=== PATIENT | female | born 1960 | race Caucasian/White ===

== ENCOUNTER 2019-02-15 17:29 | Inpatient (IN) | payer MEDICARE, OTHER ==
[~2019-02-15] VITALS: Ht 162.6 cm; Wt 95.9 kg
[2019-02-15] MEDS ORDERED: OXCA300T14 PO (18:19)
[2019-02-15] MEDS ORDERED: MORPHINE 4 MG/ML 1ML VIAL/SYRINGE (J2270) IV ONE (18:45)
[2019-02-15] MEDS ORDERED: TRIL150T PO (18:51)
[2019-02-15] MEDS ORDERED: TRIL1TAB PO (18:51)
[2019-02-15] MEDS ORDERED: HYDR25TAB PO (18:51)
[2019-02-15] MEDS ORDERED: AMLO10TA5 PO (18:51)
[2019-02-15] MEDS ORDERED: METO25TA4 PO (18:51)
[2019-02-15 18:55] LABS: BASO # 0.1 10^3/uL (0.0-0.2); BASO % 0.4 % (0.0-1.0); EOS # 0.1 10^3/uL (0.0-0.50); EOS % 0.9 % (0.0-3.0); HEMATOCRIT 38.5 % (36.0-47.0); HEMOGLOBIN 13.1 g/dl (12.0-15.5); LYMPH # 1.7 10^3/uL (1.5-4.5); LYMPH % 12.1 % (24.0-44.0); MEAN CORPUSCULAR VOLUME 85.4 fl (80.0-96.0); MONO # 1.1 10^3/uL (0.0-0.8); MONO % 8.2 % (0.0-5.0); NEUTROPHILS # 10.7 10^3/uL (1.8-7.7); PLATELET COUNT, AUTOMATED 303 10^3/uL (150-450); RED BLOOD COUNT 4.51 10^6/uL (4.00-5.40); WHITE BLOOD COUNT 13.7 10^3/uL (4.0-10.0)
[2019-02-15] MEDS ORDERED: OXcarbazepine 150 MG TAB PO ONE (19:15)
[2019-02-15] MEDS ORDERED: NS 1,000 ML IV ONE (19:15)
[2019-02-15 19:24] LABS: BLOOD UREA NITROGEN 16 MG/DL (7-18); CALCIUM LEVEL 9.3 MG/DL (8.5-10.1); CARBON DIOXIDE LEVEL 26 MEQ/L (21-32); CHLORIDE LEVEL 98 MEQ/L (98-107); CREATININE FOR GFR 0.73 MG/DL (0.55-1.30); GLOMERULAR FILTRATION RATE > 60.0 (>51); GLUCOSE, FASTING 132 MG/DL (70-100); POTASSIUM SERUM 3.6 MEQ/L (3.5-5.1); SODIUM LEVEL 133 MEQ/L (136-145)
[2019-02-15] MEDS ORDERED: HYDROMORPHONE HCL 0.5 MG/ 0.5 ML SYRINGE (J1170 PER 1) IV ONE (19:30)
[2019-02-15] MEDS ORDERED: PIPERACILLIN/TAZOBACTAM SOD 3.375 GM in D5W MINI-BAG PLUS 50 ML IV ONE (19:45)
[2019-02-15] MEDS ORDERED: ADACEL/BOOSTRIX VACCINE (DIPHTH/PERTUSS/ACELL/TETANUS)0.5ML SYR (90715) IM ONE ×2 (19:45→21:15)
--- NOTE | 2019-02-15 20:29 | REP ---
RIGHT ELBOW COMPLETE: 02/15/2019. Clinical history: Dog bite. Findings: Three views are provided. The patient unable to do the external oblique. Large soft tissue injury and lucencies about the inferior upper arm and elbow. I do not see a bone puncture wound or fracture. Joint effusion cannot be excluded. Impression: 1. A large soft tissue injury and defect without visible bony abnormality. Electronically Signed by Maverick Ghosh MD 02/16/2019 09:32 P
--- NOTE | 2019-02-15 21:02 | HPEPDOC ---
[facility] Medical History & Physical Date of Admission Feb 15, 2019 Date of Service: Feb 16, 2019 Attending Physician: SHIMA LOZADA MD History and Physical Time of service 2:30 AM CHIEF COMPLAINT: Bitten by dogs HISTORY OF PRESENT ILLNESS: This is an unfortunate 58 year old female who was mauled by 2 great minor while visiting a friend yesterday. The dogs did not know her and bit her, face her arms and her right elbow. The friend who has accompanied her to the hospital reports that this event was reported to the police. Per discussion with the ED provider, Dr. Vanegas may debride the elbow in the morning. The only complaint the patient has right now is of a headache and arm pain. REVIEW OF SYSTEMS: 12 point review of systems negative except as listed in HPI PAST MEDICAL / SURGICAL HISTORY: 1 Brain Aneurysm. 2. Seizures 3. Chronic hypertension SOCIAL HISTORY: Does not smoke FAMILY HISTORY: Cancer Hypertension ALLERGIES: Please see below. HOME MEDICATIONS: Please see below. PHYSICAL EXAMINATION: VITAL SIGNS: See below GENERAL APPEARANCE: Obese, well-developed, not in apparent distress HEENT: Has bite bhatt on the face and pain and dry dressings as above, the left eyebrow CARDIOVASCULAR: Regular rate and rhythm. No murmurs, rubs or gallops LUNGS: Clear to auscultation bilaterally ABDOMEN: Positive bowel sounds, soft and nontender. Palpation MUSCULOSKELETAL: Age of motion intact in all extremities except for the right elbow which is wrapped in dressings with some bloody discharge NEUROLOGICAL: Cranial nerves II-12 grossly intact PSYCHIATRIC: Alert and oriented to person, place and time, able to understand and follow commands, appears depressed LABORATORY DATA: See below. IMAGING: X-ray of Right elbow. "Impression A large soft tissue injury and defect without visible bony abnormality." X-rays of radius, ulnar and humerus have been completed, but the reports are p ending MICROBIOLOGY: Please see below. ASSESSMENT: Ms. Tracey is a 58-year-old female the past medical history of hypertension, brain aneurysm, and seizures, who will be admitted for management of wounds caused by dog bites . PLAN: 1. Wounds 2/2 Dog Bite The Right elbow was is affected Preoperative Assessment Risk Stratification / ASA Class 2 Plan: admit to Med Surg / NPO w IVF / Zosyn / Gen Surg Consult (Dr. Vanegas ) / Tetanus shot / Morphine for Pain control 2.Leucocytosis likely 2/2 infected wounds Plan: as above & f/u blood cx 3.Hyperglycemia Plan: f/u A1C 4.Chronic hypertension / Brain Anurysm / seizure disorder. Plan: Continue home meds DVT prophylaxis with SCDs Disposition pending clinical course Vital Signs Vital Signs Date Time Temp Pulse Resp B/P (MAP) Pulse Ox O2 Delivery O2 Flow Rate FiO2 02/15/19 20:20 18 99 02/15/19 19:12 69 136/75 (95) Room Air Laboratory Data Labs 24H Laboratory Tests 2 02/15/19 18:45: Immature Granulocyte % (Auto) 0.4, White Blood Count 13.7H, Red Blood Count 4.51, Hemoglobin 13.1, Hematocrit 38.5, Mean Corpuscular Volume 85.4, Mean Corpuscular Hemoglobin 29.0, Mean Corpuscular Hemoglobin Concent 34.0, Red Cell Distribution Width 12.2, Platelet Count 303, Neutrophils (%) (Auto) 78.0H, Lymphocytes (%) (Auto) 12.1L, Monocytes (%) (Auto) 8.2H, Eosinophils (%) (Auto) 0.9, Basophils (%) (Auto) 0.4, Neutrophils # (Auto) 10.7H, Lymphocytes # (Auto) 1.7, Monocytes # (Auto) 1.1H, Eosinophils # (Auto) 0.1, Basophils # (Auto) 0.1, Nucleated Red Blood Cells % (auto) 0.0, Anion Gap 9, Glomerular Filtration Rate > 60.0, Blood Urea Nitrogen 16, Creatinine 0.73, Sodium Level 133L, Potassium Level 3.6, Chloride Level 98, Carbon Dioxide Level 26, Calcium Level 9.3 CBC/BMP Laboratory Tests 02/15/19 18:45 Red Blood Count 4.51, Mean Corpuscular Volume 85.4, Mean Corpuscular Hemoglobin 29.0, Mean Corpuscular Hemoglobin Concent 34.0, Red Cell Distribution Width 12.2, Neutrophils (%) (Auto) 78.0 H, Lymphocytes (%) (Auto) 12.1 L, Monocytes (%) (Auto) 8.2 H, Eosinophils (%) (Auto) 0.9, Basophils (%) (Auto) 0.4, Neutrophils # (Auto) 10.7 H, Lymphocytes # (Auto) 1.7, Monocytes # (Auto) 1.1 H, Eosinophils # (Auto) 0.1, Basophils # (Auto) 0.1, Calcium Level 9.3 Home Medications Scheduled Amlodipine Besylate (Amlodipine Besylate) 10 Mg Tablet, 10 MG PO DAILY Amoxicillin/Potassium Clav (Augmentin 875-125 Tablet) 1 Each Tablet, 1 TAB PO BID Aspirin (Aspir 81) 81 Mg Tablet.dr, 81 MG PO DAILY Hydrochlorothiazide (Hydrochlorothiazide) 25 Mg Tablet, 25 MG PO DAILY Metoprolol Tartrate (Metoprolol Tartrate) 25 Mg Tablet, 25 MG PO BID Multivitamin (Multivitamins) 1 Each Capsule, 1 CAP PO DAILY Oxcarbazepine (Trileptal) 150 Mg Tablet, 150 MG PO BID Oxcarbazepine (Trileptal) 300 Mg Tablet, 300 MG PO BID Scheduled PRN Oxycodone HCl/Acetaminophen (Percocet 5-325 mg Tablet) 1 Each Tablet, 1 TAB PO Q4H PRN for PAIN Allergies Coded Allergies: zomepirac (Verified Allergy, Unknown, 02/15/19) A-FIB/CHADSVASC A-FIB History Current/History of A-Fib/PAF?: No Current PO Anticoag Therapy: No SHIMA LOZADA MD Feb 15, 2019 21:02
[2019-02-15] MEDS: NS 1,000 ML IV SCH (21:36)
[2019-02-15] MEDS ORDERED: ASPI81TA85 PO (21:59)
[2019-02-15] MEDS ORDERED: MULTCAP PO (21:59)
[2019-02-15] MEDS ORDERED: LIDOCAINE 2% MDV 20 ML VIAL SC ONE (22:00)
[2019-02-15] MEDS: MORPHINE 4 MG/ML 1ML VIAL/SYRINGE (J2270) IV PRN (22:49)
[2019-02-16] VITALS (12 sets, daily range): BP systolic 95–179; BP diastolic 50–88
[2019-02-16] MEDS: MORPHINE 4 MG/ML 1ML VIAL/SYRINGE (J2270) IV PRN ×3 (00:37→13:45)
[2019-02-16] MEDS ORDERED: ONDANSETRON 4MG/2ML VIAL (J2405) IV ONE (01:45)
[2019-02-16] MEDS ORDERED: ONDANSETRON 4MG/2ML VIAL (J2405) IV PRN ×2 (05:30→10:45)
[2019-02-16] MEDS ORDERED: PIPERACILLIN/TAZOBACTAM SOD 3.375 GM in D5W MINI-BAG PLUS 50 ML IV SCH ×2 (06:00→21:00)
[2019-02-16 06:44] LABS: HEMATOCRIT 35.3 % (36.0-47.0); HEMOGLOBIN 12.2 g/dl (12.0-15.5); MEAN CORPUSCULAR HEMOGLOBIN 29.8 pg (27.0-33.0); MEAN CORPUSCULAR HGB CONC 34.6 g/dl (32.0-36.5); MEAN CORPUSCULAR VOLUME 86.1 fl (80.0-96.0); PLATELET COUNT, AUTOMATED 280 10^3/uL (150-450); WHITE BLOOD COUNT 10.8 10^3/uL (4.0-10.0)
[2019-02-16 06:54] LABS: INR 1.05; PROTHROMBIN TIME 13.4 SECONDS (11.8-14.0)
[2019-02-16 06:55] LABS: PARTIAL THROMBOPLASTIN TIME 33.2 SECONDS (25.0-38.4)
[2019-02-16 07:02] LABS: BLOOD UREA NITROGEN 9 MG/DL (7-18); CALCIUM LEVEL 8.7 MG/DL (8.5-10.1); CARBON DIOXIDE LEVEL 28 MEQ/L (21-32); CHLORIDE LEVEL 101 MEQ/L (98-107); CREATININE FOR GFR 0.64 MG/DL (0.55-1.30); GLOMERULAR FILTRATION RATE > 60.0 (>51); GLUCOSE, FASTING 121 MG/DL (70-100); MAGNESIUM LEVEL 1.9 MG/DL (1.8-2.4); POTASSIUM SERUM 3.6 MEQ/L (3.5-5.1); SODIUM LEVEL 137 MEQ/L (136-145)
[2019-02-16 07:05] LABS: HEMOGLOBIN A1c 5.7 %
[2019-02-16] MEDS ORDERED: PROPOFOL 200 MG/20 ML VIAL As Ordered ONE (07:42)
[2019-02-16] MEDS ORDERED: ONDANSETRON 4MG/2ML VIAL (J2405) As Ordered ONE (07:42)
[2019-02-16] MEDS ORDERED: LIDOCAINE 2% INJ 100 MG/5 ML SDV (FOR ANES.) As Ordered ONE (07:42)
[2019-02-16] MEDS ORDERED: MIDAZOLAM INJ 2 MG/2 ML VIAL (J2250) As Ordered ONE (07:42)
[2019-02-16] MEDS ORDERED: fentaNYL 100 MCG/2 ML INJECTION (J3010) As Ordered ONE ×2 (07:42→08:45)
[2019-02-16] MEDS ORDERED: DESFLURANE 240 ML INHALANT As Ordered ONE (07:47)
[2019-02-16] MEDS: NS 1,000 ML IV SCH ×2 (07:55→12:06)
[2019-02-16] MEDS ORDERED: ceFAZolin 2 GM/D5W 50 ML IV BAG (J0690 PER 500MG) As Ordered ONE (08:03)
--- NOTE | 2019-02-16 08:05 | CR ---
DATE OF CONSULTATION: 02/15/2019 CHIEF COMPLAINT: Right elbow pain. HISTORY OF PRESENT ILLNESS: This is a pleasant 58-year-old female who was on a walk with a friend when she was attacked by two large great abhishek dogs. She stated that she suffered multiple bites, most significantly to her right elbow but also her face and left forearm, along with a scratch on her right leg. She said the pain was immediate, sharp and severe. It was made worse by ant sort of movement and improved but any sort of rest of immobilization and significant levels of narcotics once she reached the ER. The patient denies any numbness and tingling to her extremities. She states that her tetanus was updated in the ER. This all occurred at 5 p.m. today. The pain is throbbing and sharp in character. She denies any recent fever, chills, numbness or vomiting. A complete 10 system review of systems was conducted with pertinent, positives and negatives in the HPI, all other systems are negative. PAST MEDICAL HISTORY: High blood pressure and previous stroke and aneurysm.History of seizures. PAST SURGICAL HISTORY: Surgery for the aneurysm. ALLERGIES: No known drug allergies. MEDICATIONS: Patient takes 10 mg of amlodipine. She also takes 25 mg of hydrochlorothiazide 25 mg twice a day and metoprolol, 300 mg of oxcarbazepine along with an additional 150 mg tablet of that for a total of 450 mg twice a day. SOCIAL HISTORY: She actually lives in [place] and lives with her daughter. She is a former smoker and does not drink. PHYSICAL EXAMINATION: Patient is awake, alert and oriented, breathing comfortably unlabored on room air. Patient has appropriate affect. Bilateral lower extremity exam: Skin is intact except for small superficial scratch on her right thigh. Otherwise her sensation is intact to light touch in superficial peroneal, deep peroneal, saphenous and tibial distributions. She has positive EHL, FHL, tib, gastroc and quad hamstring motor function. She has no tenderness to palpation. Her posterior tibial pulses were 2+ with regular rate. She has full range of motion of her toes, ankles and knees without any pain and a negative log roll bilateral hips. Left upper extremity: Multiple superficial lacerations over her forearm and hand, however sensation is intact to light touch in superficial, radial nerve, median nerve and ulnar nerve. Radial pulses are 2+ with regular rate. Positive EPL, FPL, EDC and FDF, FDP to all fingers, Positive AIN, PIN, and ulnar motor nerve function. She has minimal pain with range of motion for the wrist, elbow and shoulders. This is attributed to her lacerations. She is only tender to palpation over the multiple lacerations that cover the dorsum of her hand into her palm and over her dorsal forearm and arm. Right upper extremity: She has no tenderness to palpation around the shoulder, over the anterior arms. She has some superficial scratches. Over the elbow she has significant laceration measuring 2 on the anterior aspect of her elbow anterolateral aspect of her elbow that is about 10 cm long each along with one directly posterior, an additional 10 cm. There is exposed subcutaneous tissue and muscle belly. She was able to actively flex and extend her elbow with 3/5 strength, likely limited to pain. Wounds are generally uncontaminated to gross visualization. She also some superficial abrasions over her hands and wrists on the right side. Her radial pulse is 2+ with a regular rate. Her sensation is intact to light touch, superficial sensory branches of the radial nerve, median nerve, and ulnar nerve. Positive AIN, PIN and ulnar motor nerve function. FPL, EPL, FDS, FDP to all fingers are intact. There are superficial lacerations across her head most significantly one about 10 cm in the left side of her face. No gross contamination. IMAGING: So far right elbow, has been completed that demonstrates no acute fracture or dislocation, however is concerning for traumatic arthrotomy with air within the joint space. DIAGNOSIS: 1. Right traumatic arthrotomy with extensive soft-tissue lacerations and muscle belly damage of the right elbow. This diagnosis was discussed at length with the patient and their family, including their daughter over the phone who is located in [place]. I stated that with the traumatic arthrotomy and extensive soft-tissue damage, I do believe irrigation and debridement in the OR with complex wound closure is indicated. We will also further evaluate for any sort of tendon laceration and damage, however I do not believe this will be encountered but we will definitely take a better look when she is sedated. The patient has had her tetanus updated in the ER and has had a first antibiotic dose of Zosyn. I asked that this could be continued until surgery and likely we will continue 24-48 hours after surgery. This will help decrease her risk of septic arthritis or soft-tissue infection. We obtained consent in the ER. All risks and benefits were discussed including but not limited to infection, damage to surrounding structures, and blood loss. A consent for blood transfusion was also obtained in the ER. The wounds are going to be dressed by the ER staff and we plan for debridement tomorrow. Please make her nothing by mouth at midnight and start her on IV fluids and continue IV antibiotics. She will be admitted to the hospitalist service for preoperative optimization and clearance including her risk of past seizures and risk of stroke history. ADDENDUM: R humers and Left forearm films completed demonstrated no acute fracture or dislocations MTDD
[2019-02-16] MEDS ORDERED: KETAMINE HCL 200 MG/20 ML VIAL As Ordered ONE (08:32)
[2019-02-16] MEDS ORDERED: KETOROLAC 60 MG/2 ML VIAL (J1885) As Ordered ONE (09:14)
[2019-02-16 09:32] LABS: NT-PRO BNP 42 PG/ML (<125)
--- NOTE | 2019-02-16 10:30 | REP ---
RIGHT HUMERUS: 02/15/2019. Comparison: Right elbow earlier this date. Clinical history: Significant soft tissue injury of the distal upper arm and elbow region from reported dog bite. Findings: The two-views show prominent soft tissue defect lower aspect of the upper arm. I do not see definite bone puncture or fracture/avulsion. The subcutaneous air from massive soft tissue injury in this region could certainly obscure a bone puncture. Remainder the shaft and humeral head were intact. The distal humerus without focal lesion. Impression: 1. Significant soft tissue injury adjacent to the distal humerus in the lower aspect of the upper arm. No other finding. Electronically Signed by Maverick Ghosh MD 02/16/2019 09:45 P
--- NOTE | 2019-02-16 10:35 | REP ---
LEFT FOREARM: 02/15/2019. Clinical history: Dog bite. Findings: Two views of the forearm show IV along the ventral aspect of the forearm midshaft no fracture or focal lesion evident. No radiopaque foreign body. Some mild soft tissue swelling distal forearm. Impression: 1. Some soft tissue swelling distal forearm without visible fracture, avulsion, bony abnormality or abnormal soft-tissue calcification. No foreign body. Electronically Signed by Maverick Ghosh MD 02/16/2019 09:46 P
--- NOTE | 2019-02-16 10:35 | REP ---
RIGHT FOREARM: 02/15/2019. Clinical history: Dog bite. Comparison: Right elbow and humerus this date. Findings: Subcutaneous edema soft tissue injury about the elbow and proximal aspect of the forearm adjacent to the olecranon and antecubital fossa remainder of the soft tissues about the forearm unremarkable radius and ulna show no focal lesion. Visualized wrist intact. Impression: 1. Soft tissue injury at the elbow antecubital fossa involving the proximal most aspect of the forearm but no bony abnormality or foreign body. Electronically Signed by Maverick Ghosh MD 02/16/2019 09:47 P
[2019-02-16] MEDS ORDERED: LR 1,000 ML IV SCH (10:45)
[2019-02-16] MEDS ORDERED: HYDROMORPHONE HCL 0.5 MG/ 0.5 ML SYRINGE (J1170 PER 1) IV PRN (10:45)
[2019-02-16] MEDS ORDERED: fentaNYL 100 MCG/2 ML INJECTION (J3010) IV PRN (10:45)
[2019-02-16] MEDS ORDERED: PERCOCET 5MG/325MG TAB PO PRN (10:45)
[2019-02-16] MEDS ORDERED: PERCOCET 5MG/325MG TAB As Ordered ONE (10:46)
[2019-02-16] MEDS: OXcarbazepine 150 MG TAB PO SCH ×2 (12:06→21:00)
[2019-02-16] MEDS: OXcarbazepine 300 MG TAB PO SCH ×2 (12:06→21:00)
[2019-02-16] MEDS: ASPIRIN 81 MG ENTERIC TAB PO SCH (12:06)
[2019-02-16] MEDS: hydroCHLOROthiazide 25 MG TAB PO SCH (12:06)
[2019-02-16] MEDS: amLODIPine 10 MG TAB PO SCH (12:07)
[2019-02-16] MEDS: METOPROLOL TART 25 MG TABLET PO SCH ×2 (12:07→21:02)
--- NOTE | 2019-02-16 12:51 | RO ---
DATE OF PROCEDURE: 02/16/2019 PREOPERATIVE DIAGNOSIS: Right elbow traumatic arthrotomy with complex lacerations throughout anterior, lateral and posterior and medial right elbow. POSTOPERATIVE DIAGNOSIS: Right elbow traumatic arthrotomy with complex lacerations throughout anterior, lateral and posterior and medial right elbow. PROCEDURE: SURGEON: Dr. Devyn Vanegas ANESTHESIOLOGY CRNA: ANESTHESIA: General. TOURNIQUET TIME: 71 minutes. ESTIMATED BLOOD LOSS: 25 mL. INDICATIONS: This is a pleasant, 58-year-old female who was mauled by two [place] yesterday evening. She was seen in the ER where her tetanus was updated and her antibiotics were started and she had initial irrigation of all her open wounds. We discussed that since on x-ray and physical exam it appeared that there was a penetration to the joint and there was also complex skin and muscle damage that it warranted open debridement and closure. The patient expressed understanding and agreed with this plan. They understand the risks and benefits associated with this, including but not limited to infection, blood loss and damage to surrounding structures. OPERATIVE DESCRIPTION: The patient was brought back to the operating room (OR), placed supine on the operative bed and underwent general anesthesia, at which point, the operative arm was scrubbed with Betadine scrub brush to cleanse the superficial contaminant. This was then cleansed with alcohol and then we did a Betadine prep. The prep was completed and draped in the usual fashion, at which point, a time out was had. She also received 2 grams of Ancef prior to the procedure starting. The site, side, procedure and patient were confirmed, at which point, we used the gravity exsanguination and elevated the tourniquet and started debriding the numerous lacerations. All skin, subcutaneous and muscle had to be debrided from all the lacerations which numbered 9 total lacerations with a total length of 36 cm. All 36 cm underwent sharp debridement of skin, subcutaneous tissue and underlying muscle. We were able to identify the penetration to the joints in both the lateral traumatic lacerations along with posterior. The triceps tendon was found to be, albeit beat up but intact, with over 95% intact, so just debrided some of the tendon as well, at which point, we ran 9 liters of irrigation using Cysto tubing throughout all the lacerations. Once we were happy with the cleanliness of the wounds, we started our closures. We used #3-0 PDS and #3-0 nylon for closures. In total 36 cm of complex lacerations had to be closed in a complex fashion utilizing skin transfers/rearragements and moving full thickness flaps. Once we were happy with the closure, we cleansed the patient's arm and dressed the wounds with Adaptic. Prior to the final closure, we also inserted a 10 Iranian drain into the lateral aspect of beds, also connected with the anterior wound as this was a large space. The wounds were dressed with Adaptic, gauze, ABDs, Kerlix, web roll, and placement of posterior slab splint for skin rest, at which point, the patient was awakened from surgery, tourniquet was let down and transferred to the postanesthesia care unit (PACU) in stable condition. Postoperative Plan: The patient will remain admitted for at least 48 hours for IV antibiotics with Zosyn and then discharged on seven days of Augmentin. I will see her in the office at 2 weeks, at which point, we will evaluate the skin for suture removal. This may require a more extended wait. Once we decide the skin is ready for suture removal is when we will discontinue the splint and allow her to start ranging her elbow to avoid any sort of stiffness. The drain will be removed prior to discharge or as soon as the output is minimal. There were no complications. The only drain is the 10 Iranian drain. No specimens. MTDD
--- NOTE | 2019-02-16 13:07 | IPN ---
DATE: 02/16/2019 The patient was initially seen this morning prior to surgery. She was admitted last night for multiple dog bites across her bilateral upper extremities and her face along with a scratch on her right leg. Patient states that her pain is much improved. She denies any fevers or issues overnight. We planned for surgery on her right elbow today that sustained a traumatic arthrotomy. PHYSICAL EXAMINATION: The patient was awake, alert and oriented breathing comfortably unlabored on room air. Appropriate affect. Right upper extremity dressing is in place covering the incisions however. Radial pulse 2+ and regular rate. Positive AIN, PIN, and ulnar motor nerve function. Good reflex in the elbow. Sensation intact to light touch. Left upper extremity, multiple lacerations, they are small and not deep including over her left hand however intact FPL, EPL, EDC, and FDS, FDP of all fingers. Sensation intact to all fingers. Imaging of the right humerus and left elbow were reviewed demonstrating no acute fracture or dislocation. The previous right elbow film that demonstrate air within the joints of the elbow. DIAGNOSIS: 1. Right elbow traumatic arthrotomy. 2. Right elbow multiple complex lacerations to the right elbow. 3. Left hand complex lacerations. This was discussed at length with the patient. We discussed surgery and the need for irrigation and debridement and complex closure of the lacerations along with evaluating for any sort of tendon damage. Patient expressed understanding and agreement with the plan. She is currently nothing by mouth and on IV fluids and has been receiving Zosyn. We should continue the Zosyn until the patient is discharged at which point I would like her discharged on 7 days of Augmentin. I would also recommend to the hospitalist that she have a ENT/general surgery consultation for the laceration on her face. With regards to her left hand I would like the dressing removed with the left day or two because I want her to work on range of motion and as long as it is not bleeding copiously she does not require any sort of dressings over these wounds. Please feel free to call with any questions or concerns. JEREMIAS
--- NOTE | 2019-02-16 13:11 | IPNPDOC ---
Subjective Date Seen The patient was seen on 02/16/19. Subjective Chief Complaint/HPI Going to the OR today, complains of right elbow discomfort. Denies any chest pain or sob, denies any abdominal pain , nausea or vomiting or diarrhea Objective Physical Examination General Exam: Positive: Alert, Cooperative, No Acute Distress Eye Exam: Positive: PERRLA, Conjunctiva & lids normal, EOMI; Negative: Sclera icteric ENT Exam: Positive: Atraumatic, Mucous membr. moist/pink, Pharynx Normal Neck Exam: Positive: Supple; Negative: JVD, thyromegaly Chest Exam: Positive: Clear to auscultation, Normal air movement Heart Exam: Positive: Rate Normal, Regular Rhythm, Normal S1, Normal S2; Negative: Murmurs, Rubs Abdomen Exam: Positive: Normal bowel sounds, Soft; Negative: Tenderness, Hepatospenomegaly Extremity Exam: Positive: Normal pulses; Negative: Clubbing, Cyanosis, Edema Skin Exam: Positive: Lesion (Right elbow large defect with exposure of muscle belly), Other skin issue (superficial scraches on the left upper extremity, 1 superficail scratch on jeannine rigt thigh , scratches on face and forehead) Assessment /Plan Assessment This is a 58 year old female with PMH of seizures, brain aneurysm repaired, hypertensin, who was mauled by 2 dogs while visiting a friend yesterday. The dogs did not know her and bit her, face her arms and her right elbow. The major trauma is around the right elbow. IMAGING: right elbow, humerus, radius and ulna on the right demonstrates no acute fracture or dislocation, however is concerning for traumatic arthrotomy with air within the joint space. She was admitted for Right traumatic arthrotomy with extensive soft-tissue lac erations and muscle belly damage of the right elbow needed debridement so admitted to the hospital for evaluation by orthopedics and operative intervention. Wounds 2/2 Dog Bite The Right elbow was is affected with suspected traumatic arthrotomy due to the presence of air in joint space. Planned for irrigation and debridement in the OR with complex wound closure and further evaluation for any sort of tendon laceration and damage under sedation. No bone injury. Went to OR 02/16/19 for debridement patient medically optimized for the procedure. Leucocytosis likely reactive wounds did not seem infected. It was very fresh happened yesterday only. better today, cultures in progress. however in view of surgical intervention and wounds at other places with cover with Zosyn till woundscultures come back Hyperglycemia A1c 5.7 , no DM Chronic hypertension / Brain Aneurysm / seizure disorder. On Amlodipine, HCTZ and metoprolol Plan/VTE VTE Prophylaxis Ordered?: Yes VS, I&O, 24H, Fishbone Vital Signs/I&O Vital Signs Date Time Temp Pulse Resp B/P (MAP) Pulse Ox O2 Delivery O2 Flow Rate FiO2 02/16/19 12:15 98.7 79 16 159/79 (105) 95 02/16/19 01:19 Room Air I&O- Last 24 Hours up to 6 AM 02/16/19 06:00 Intake Total 700 ml Output Total 800 ml Balance -100 ml Laboratory Data 24H LABS Laboratory Tests 2 02/15/19 18:45: Immature Granulocyte % (Auto) 0.4, White Blood Count 13.7H, Red Blood Count 4.51, Hemoglobin 13.1, Hematocrit 38.5, Mean Corpuscular Volume 85.4, Mean Corpuscular Hemoglobin 29.0, Mean Corpuscular Hemoglobin Concent 34.0, Red Cell Distribution Width 12.2, Platelet Count 303, Neutrophils (%) (Auto) 78.0H, Lymphocytes (%) (Auto) 12.1L, Monocytes (%) (Auto) 8.2H, Eosinophils (%) (Auto) 0.9, Basophils (%) (Auto) 0.4, Neutrophils # (Auto) 10.7H, Lymphocytes # (Auto) 1.7, Monocytes # (Auto) 1.1H, Eosinophils # (Auto) 0.1, Basophils # (Auto) 0.1, Nucleated Red Blood Cells % (auto) 0.0, Anion Gap 9, Glomerular Filtration Rate > 60.0, Blood Urea Nitrogen 16, Creatinine 0.73, Sodium Level 133L, Potassium Level 3.6, Chloride Level 98, Carbon Dioxide Level 26, Calcium Level 9.3 02/16/19 06:29: Nucleated Red Blood Cells % (auto) 0.0, Anion Gap 8, Glomerular Filtration Rate > 60.0, Blood Urea Nitrogen 9, Creatinine 0.64, Sodium Level 137, Potassium Level 3.6, Chloride Level 101, Carbon Dioxide Level 28, Calcium Level 8.7, Prothrombin Time 13.4, Prothromb Time International Ratio 1.05, Activated Partial Thromboplast Time 33.2, Estimated Mean Plasma Glucose 117H, Hemoglobin A1c 5.7, Magnesium Level 1.9, HP-Pbb-O-Type Natriuretic Peptide 42 CBC/BMP Laboratory Tests 02/15/19 18:45 Red Blood Count 4.51, Mean Corpuscular Volume 85.4, Mean Corpuscular Hemoglobin 29.0, Mean Corpuscular Hemoglobin Concent 34.0, Red Cell Distribution Width 12.2, Neutrophils (%) (Auto) 78.0 H, Lymphocytes (%) (Auto) 12.1 L, Monocytes (%) (Auto) 8.2 H, Eosinophils (%) (Auto) 0.9, Basophils (%) (Auto) 0.4, Neutrophils # (Auto) 10.7 H, Lymphocytes # (Auto) 1.7, Monocytes # (Auto) 1.1 H, Eosinophils # (Auto) 0.1, Basophils # (Auto) 0.1, Calcium Level 9.3 02/16/19 06:29 Red Blood Count 4.10, Mean Corpuscular Volume 86.1, Mean Corpuscular Hemoglobin 29.8, Mean Corpuscular Hemoglobin Concent 34.6, Red Cell Distribution Width 12.4, Calcium Level 8.7 Microbiology Microbiology 02/16/19 Blood Culture, Received Pending SIS COREA MD Feb 16, 2019 13:11
[2019-02-16] MEDS ORDERED: IBUPROFEN 600 MG TAB PO PRN (14:15)
[2019-02-16] MEDS ORDERED: ONDANSETRON 4 MG TAB (S0181) PO PRN (14:15)
[2019-02-16] MEDS: PIPERACILLIN/TAZOBACTAM SOD 3.375 GM in D5W MINI-BAG PLUS 50 ML IV SCH ×2 (15:19→21:00)
--- NOTE | 2019-02-16 16:17 | ECGEPIP ---
[facility] Test Date: 2019-02-16 Pat Name: ANGEL AGEE Department: Room: [place] [address] Gender: Female Client Professional: ROSANA : [id number] Requested By: SHIMA LOZADA Order Number: [id number] Reading MD: Zeferino Mckeon Measurements Intervals [place] Rate: 86 P: 34 FL: 167 QRS: 7 QRSD: 106 T: 30 QT: 374 QTc: 448 Interpretive Statements SINUS RHYTHM NO PRIOR TRACING IN THE SYSTEM Electronically Signed on 02-16-2019 16:17:12 EDT by Zeferino Mckeon
[2019-02-16] MEDS: PERCOCET 5MG/325MG TAB PO PRN ×2 (16:20→21:02)
[2019-02-17 02:00] VITALS: BP 101/56
[2019-02-17] MEDS: PIPERACILLIN/TAZOBACTAM SOD 3.375 GM in D5W MINI-BAG PLUS 50 ML IV SCH ×4 (02:28→21:43)
[2019-02-17 06:00] VITALS: BP 124/64
[2019-02-17 07:11] LABS: BASO % 0.4 % (0.0-1.0); EOS # 0.1 10^3/uL (0.0-0.50); EOS % 1.1 % (0.0-3.0); HEMOGLOBIN 10.7 g/dl (12.0-15.5); LYMPH # 1.7 10^3/uL (1.5-4.5); LYMPH % 19.3 % (24.0-44.0); MEAN CORPUSCULAR HEMOGLOBIN 28.9 pg (27.0-33.0); MEAN CORPUSCULAR HGB CONC 33.4 g/dl (32.0-36.5); MEAN CORPUSCULAR VOLUME 86.5 fl (80.0-96.0); MONO % 12.1 % (0.0-5.0); NEUTROPHILS # 5.7 10^3/uL (1.8-7.7); NEUTROPHILS % 66.6 % (36.0-66.0); PLATELET COUNT, AUTOMATED 265 10^3/uL (150-450); WHITE BLOOD COUNT 8.5 10^3/uL (4.0-10.0)
[2019-02-17 07:38] LABS: BLOOD UREA NITROGEN 13 MG/DL (7-18); CALCIUM LEVEL 8.4 MG/DL (8.5-10.1); CARBON DIOXIDE LEVEL 29 MEQ/L (21-32); CHLORIDE LEVEL 103 MEQ/L (98-107); CREATININE FOR GFR 0.72 MG/DL (0.55-1.30); GLOMERULAR FILTRATION RATE > 60.0 (>51); GLUCOSE, FASTING 105 MG/DL (70-100); POTASSIUM SERUM 3.3 MEQ/L (3.5-5.1); SODIUM LEVEL 137 MEQ/L (136-145)
[2019-02-17] MEDS ORDERED: PERC5TAB12 PO (07:40)
[2019-02-17] MEDS ORDERED: AUGM875T28 PO (07:40)
[2019-02-17] MEDS: PERCOCET 5MG/325MG TAB PO PRN ×3 (07:53→21:44)
[2019-02-17] MEDS ORDERED: POTASSIUM CHLORIDE 10 MEQ SR TABLET PO ONE (09:00)
[2019-02-17] MEDS: hydroCHLOROthiazide 25 MG TAB PO SCH (09:17)
[2019-02-17] MEDS: OXcarbazepine 150 MG TAB PO SCH ×2 (09:17→21:43)
[2019-02-17] MEDS: OXcarbazepine 300 MG TAB PO SCH ×2 (09:17→21:43)
[2019-02-17] MEDS: ASPIRIN 81 MG ENTERIC TAB PO SCH (09:18)
[2019-02-17] MEDS: METOPROLOL TART 25 MG TABLET PO SCH ×2 (09:18→21:47)
[2019-02-17] MEDS: amLODIPine 10 MG TAB PO SCH (09:18)
[2019-02-17 10:00] VITALS: BP 136/67
--- NOTE | 2019-02-17 12:33 | IPNPDOC ---
Subjective Date Seen The patient was seen on 02/17/19. Subjective Chief Complaint/HPI No complaints this morning. pain i controlled, encouraged to start moving the arm. No fever or chills, no chest apin or sob. no abdominal pain nausea or vomiting or diarrhea. Objective Physical Examination General Exam: Positive: Alert, Cooperative, No Acute Distress Eye Exam: Positive: PERRLA, Conjunctiva & lids normal, EOMI; Negative: Sclera icteric ENT Exam: Positive: Atraumatic, Mucous membr. moist/pink, Pharynx Normal Neck Exam: Positive: Supple; Negative: JVD, thyromegaly Chest Exam: Positive: Clear to auscultation, Normal air movement Heart Exam: Positive: Rate Normal, Regular Rhythm, Normal S1, Normal S2; Negative: Murmurs, Rubs Abdomen Exam: Positive: Normal bowel sounds, Soft; Negative: Tenderness, Hepatospenomegaly Extremity Exam: Positive: Normal pulses; Negative: Clubbing, Cyanosis, Edema Skin Exam: Positive: Lesion (Right elbow large defect with exposure of muscle belly), Other skin issue (superficial scraches on the left upper extremity, 1 superficail scratch on jeannine rigt thigh , scratches on face and forehead) Assessment /Plan Assessment This is a 58 year old female with PMH of seizures, brain aneurysm repaired, hypertensin, who was mauled by 2 dogs while visiting a friend yesterday. The dogs did not know her and bit her, face her arms and her right elbow. The major trauma is around the right elbow. IMAGING: right elbow, humerus, radius and ulna on the right demonstrates no acute fracture or dislocation, however is concerning for traumatic arthrotomy with air within the joint space. She was admitted for Right traumatic arthrotomy with extensive soft-tissue lacerations and muscle belly damage of the right elbow needed debridement so admitted to the hospital for evaluation by orthopedics and operative intervention. Wounds 2/2 Dog Bite The Right elbow was is affected with suspected traumatic arthrotomy due to the presence of air in joint space. Had irrigation and debridement in the OR with complex wound closure No bone injury. Now has a drain in place. Facial laceration will ask for surgical evaluation. Leucocytosis likely reactive wounds did not seem infected. It was very fresh happened yesterday only. better today, cultures in progress. however in view of surgical intervention and wounds at other places with cover with Zosyn till woundscultures come back Hypokalemia replaced Hyperglycemia A1c 5.7 , no DM Chronic hypertension / Brain Aneurysm / seizure disorder. On Amlodipine, HCTZ and metoprolol Plan/VTE VTE Prophylaxis Ordered?: Yes VS, I&O, 24H, Fishbone Vital Signs/I&O Vital Signs Date Time Temp Pulse Resp B/P (MAP) Pulse Ox O2 Delivery O2 Flow Rate FiO2 02/17/19 10:00 98.6 83 18 136/67 (90) 98 02/16/19 01:19 Room Air I&O- Last 24 Hours up to 6 AM 02/17/19 06:00 Intake Total 1670 ml Output Total 800 ml Balance 870 ml Laboratory Data 24H LABS Laboratory Tests 2 02/17/19 06:54: Immature Granulocyte % (Auto) 0.5, White Blood Count 8.5, Red Blood Count 3.70L, Hemoglobin 10.7L, Hematocrit 32.0L, Mean Corpuscular Volume 86.5, Mean Corpuscular Hemoglobin 28.9, Mean Corpuscular Hemoglobin Concent 33.4, Red Cell Distribution Width 12.8, Platelet Count 265, Neutrophils (%) (Auto) 66.6H, Lymphocytes (%) (Auto) 19.3L, Monocytes (%) (Auto) 12.1H, Eosinophils (%) (Auto) 1.1, Basophils (%) (Auto) 0.4, Neutrophils # (Auto) 5.7, Lymphocytes # (Auto) 1.7, Monocytes # (Auto) 1.0H, Eosinophils # (Auto) 0.1, Basophils # (Auto) 0.0, Nucleated Red Blood Cells % (auto) 0.0, Anion Gap 5L, Glomerular Filtration Rate > 60.0, Blood Urea Nitrogen 13, Creatinine 0.72, Sodium Level 137, Potassium Level 3.3L, Chloride Level 103, Carbon Dioxide Level 29, Calcium Level 8.4L CBC/BMP Laboratory Tests 02/17/19 06:54 Red Blood Count 3.70 L, Mean Corpuscular Volume 86.5, Mean Corpuscular He moglobin 28.9, Mean Corpuscular Hemoglobin Concent 33.4, Red Cell Distribution Width 12.8, Neutrophils (%) (Auto) 66.6 H, Lymphocytes (%) (Auto) 19.3 L, Monocytes (%) (Auto) 12.1 H, Eosinophils (%) (Auto) 1.1, Basophils (%) (Auto) 0.4, Neutrophils # (Auto) 5.7, Lymphocytes # (Auto) 1.7, Monocytes # (Auto) 1.0 H, Eosinophils # (Auto) 0.1, Basophils # (Auto) 0.0, Calcium Level 8.4 L Microbiology Microbiology 02/16/19 Blood Culture - Preliminary, Resulted No growth after 24 hours . All specim... SIS COREA MD Feb 17, 2019 12:33
--- NOTE | 2019-02-17 13:51 | IPN ---
DATE: 02/17/2019 SUBJECTIVE: The patient's pain is well controlled. No issues overnight. Drain in place is working well and drained about 10 mL overnight. There has been no increase in pain. Pain has only improved. The patient is very happy with how things have progressed. Denies any nausea or vomiting, fevers or chills. Vital signs intact. Right upper extremity splint is intact. Drain intact. Serosanguineous fluid in the drain. Sensation intact to light touch superficial branch of radial nerve, medial nerve and ulnar nerve. Positive AIN, PIN, and ulnar motor nerve function right hand. The hand is warm and well perfused. Left Hand: Multiple soft tissue lacerations over the left hand, palm and dorsum and distal arm. All of which look clean and healthy without any significant erythema. There is moderate swelling to the area. She has limited range of motion due to pain and the swelling. However, her sensation is intact to light touch superficial branch of radial nerve, medial nerve and ulnar nerve, and on the radial ulnar aspect of all digits. She also has intact extensor and flexor function of all fingers. DIAGNOSIS: 1. Right traumatic arthrotomy to the elbow. 2. Complex lacerations of the right arm. 3. Complex lacerations of left hand. These diagnoses were discussed once again with the patient. At this point, we will continue her in the long arm splint to the right hand until followup. Will plan on pulling the drain tomorrow morning. With regards to the left arm, I removed the dressing over her left hand. I want this open to the air and I want her moving her fingers and hand as much as possible to help keep the stiffness from developing and help with decreasing some of that swelling. She is also to elevate both arms. She will continue the IV Zosyn until she is discharged, at which point, please discharge her with 7 days of Augmentin. Based on her travel plans, it sounds like I will be seeing her in the office the week of Labor . From an orthopedic standpoint, she is stable to be discharged in the morning. I will see her to pull the drain tomorrow morning, somewhere between 7:00 and 8:00 a.m. Also, I highly recommend either general surgery or ENT visit the patient to discuss her facial lacerations prior to discharge.
[2019-02-17 14:00] VITALS: BP 146/67
[2019-02-17 21:46] VITALS: BP 134/67
[2019-02-18] MEDS: PIPERACILLIN/TAZOBACTAM SOD 3.375 GM in D5W MINI-BAG PLUS 50 ML IV SCH ×3 (03:53→15:00)
[2019-02-18 06:00] VITALS: BP 133/56
[2019-02-18 07:09] LABS: BASO % 0.5 % (0.0-1.0); EOS # 0.2 10^3/uL (0.0-0.50); EOS % 2.1 % (0.0-3.0); HEMATOCRIT 33.8 % (36.0-47.0); HEMOGLOBIN 11.2 g/dl (12.0-15.5); LYMPH # 1.7 10^3/uL (1.5-4.5); LYMPH % 19.8 % (24.0-44.0); MEAN CORPUSCULAR HEMOGLOBIN 29.7 pg (27.0-33.0); MEAN CORPUSCULAR HGB CONC 33.1 g/dl (32.0-36.5); MEAN CORPUSCULAR VOLUME 89.7 fl (80.0-96.0); MONO # 0.8 10^3/uL (0.0-0.8); MONO % 9.5 % (0.0-5.0); NEUTROPHILS # 5.8 10^3/uL (1.8-7.7); NEUTROPHILS % 67.7 % (36.0-66.0); PLATELET COUNT, AUTOMATED 287 10^3/uL (150-450); RED BLOOD COUNT 3.77 10^6/uL (4.00-5.40); WHITE BLOOD COUNT 8.5 10^3/uL (4.0-10.0)
[2019-02-18 07:34] LABS: BLOOD UREA NITROGEN 12 MG/DL (7-18); CARBON DIOXIDE LEVEL 31 MEQ/L (21-32); CHLORIDE LEVEL 102 MEQ/L (98-107); CREATININE FOR GFR 0.68 MG/DL (0.55-1.30); GLOMERULAR FILTRATION RATE > 60.0 (>51); GLUCOSE, FASTING 102 MG/DL (70-100); POTASSIUM SERUM 3.9 MEQ/L (3.5-5.1); SODIUM LEVEL 136 MEQ/L (136-145)
[2019-02-18] MEDS: hydroCHLOROthiazide 25 MG TAB PO SCH (09:30)
[2019-02-18] MEDS: PERCOCET 5MG/325MG TAB PO PRN (09:30)
[2019-02-18] MEDS: ASPIRIN 81 MG ENTERIC TAB PO SCH (09:30)
[2019-02-18 09:31] VITALS: BP 140/68
[2019-02-18] MEDS: amLODIPine 10 MG TAB PO SCH (09:31)
[2019-02-18] MEDS: OXcarbazepine 150 MG TAB PO SCH (09:31)
[2019-02-18] MEDS: METOPROLOL TART 25 MG TABLET PO SCH (09:31)
[2019-02-18] MEDS: OXcarbazepine 300 MG TAB PO SCH (09:31)
[2019-02-18 14:00] VITALS: BP 148/75
--- NOTE | 2019-02-19 06:59 | DS.PDOC ---
Discharge Summary General Date of Admission Feb 15, 2019 at 21:05 Date of Discharge 02/18/19 Discharge Summary PROCEDURES PERFORMED DURING STAY: Incision and drainage of right Elbow with complex wound closure on 02/16/19 DISCHARGE DIAGNOSES: Multiple wounds due to dog bites Right traumatic arthrotomy to the elbow. Complex lacerations of the right arm. Complex lacerations of left hand. Lacerations on the face hypertension seizure disorder h/o brain aneurysm clipped in the remote past. COMPLICATIONS/CHIEF COMPLAINT: Infected Bite Wound. HISTORY OF PRESENT ILLNESS: see history and physical HOSPITAL COURSE: This is a 58 year old female with PMH of seizures, brain aneurysm repaired, hypertensin, who was mauled by 2 dogs while visiting a friend yesterday. The dogs did not know her and bit her, face her arms and her right elbow. The major trauma is around the right elbow. IMAGING: right elbow, humerus, radius and ulna on the right demonstrates no acute fracture or dislocation, however is concerning for traumatic arthrotomy with air within the joint space. She was admitted for Right traumatic arthrotomy with extensive soft-tissue lacerations and muscle belly damage of the right elbow needed debridement so admitted to the hospital for evaluation by orthopedics and operative intervention. Wounds 2/2 Dog Bite The Right elbow was is affected with traumatic arthrotomy due to the presence of air in joint space. Had irrigation and debridement in the OR with complex wound closure No bone injury. as per ortho to continue with long arm splint to the right hand until followup. Facial laceration stitched in ED with nylon . stitches need to be removed within 7 days. Leucocytosis likely reactive blood cultures negative no wound cultures were sent from OR. will continue with Augmentin on discharge. Hypokalemia replaced Hyperglycemia A1c 5.7 , no DM Chronic hypertension / Brain Aneurysm / seizure disorder. On Amlodipine, HCTZ and metoprolol, oxcarbazepine. DISCHARGE MEDICATIONS: Please see below. ALLERGIES: Please see below. PHYSICAL EXAMINATION ON DISCHARGE: VITAL SIGNS: Please see below. General Exam: Positive: Alert, Cooperative, No Acute Distress Eye Exam: Positive: PERRLA, Conjunctiva & lids normal, EOMI; Negative: Sclera icteric ENT Exam: Positive: Atraumatic, Mucous membranes. moist/pink, Pharynx Normal Neck Exam: Positive: Supple; Negative: JVD, thyromegaly Chest Exam: Positive: Clear to auscultation, Normal air movement Heart Exam: Positive: Rate Normal, Regular Rhythm, Normal S1, Normal S2; Negative: Murmurs, Rubs Abdomen Exam: Positive: Normal bowel sounds, Soft; Negative: Tenderness, Hepatosplenomegaly Extremity Exam: Positive: Normal pulses; Negative: Clubbing, Cyanosis, Edema Skin Exam: Positive: Lesion (Right elbow large defect with exposure of muscle belly), Other skin issue (superficial scratches on the left upper extremity, 1 superficial scratch on the right thigh , scratches on face, A deeper cut on left forehead with stitches LABORATORY DATA: Please see below. ACTIVITY: [As tolerated]. DIET: As tolerated DISCHARGE PLAN: Home DISPOSITION: Home, Self-Care. DISCHARGE INSTRUCTIONS: Follow up with Orthopedics in 2 weeks Follow up in ED for removal of stitches on the forehead between 02/20 to 02/22 DISCHARGE CONDITION: [Stable]. TIME SPENT ON DISCHARGE: 35 minutes. Vital Signs/I&Os Vital Signs Date Time Temp Pulse Resp B/P (MAP) Pulse Ox O2 Delivery O2 Flow Rate FiO2 02/18/19 14:00 98.2 76 18 148/75 (99) 97 02/16/19 01:19 Room Air I&O- Last 24 Hours up to 6 AM 02/19/19 06:00 Intake Total 1350 ml Balance 1350 ml Laboratory Data Labs 24H Laboratory Tests 2 02/18/19 06:58: Immature Granulocyte % (Auto) 0.4, White Blood Count 8.5, Red Blood Count 3.77L, Hemoglobin 11.2L, Hematocrit 33.8L, Mean Corpuscular Volume 89.7, Mean Corpuscular Hemoglobin 29.7, Mean Corpuscular Hemoglobin Concent 33.1, Red Cell Distribution Width 12.8, Platelet Count 287, Neutrophils (%) (Auto) 67.7H, Lymphocytes (%) (Auto) 19.8L, Monocytes (%) (Auto) 9.5H, Eosinophils (%) (Auto) 2.1, Basophils (%) (Auto) 0.5, Neutrophils # (Auto) 5.8, Lymphocytes # (Auto) 1.7, Monocytes # (Auto) 0.8, Eosinophils # (Auto) 0.2, Basophils # (Auto) 0.0, Nucleated Red Blood Cells % (auto) 0.0, Anion Gap 3L, Glomerular Filtration Rate > 60.0, Blood Urea Nitrogen 12, Creatinine 0.68, Sodium Level 136, Potassium Level 3.9, Chloride Level 102, Carbon Dioxide Level 31, Calcium Level 9.0 CBC/BMP Laboratory Tests 02/18/19 06:58 Red Blood Count 3.77 L, Mean Corpuscular Volume 89.7, Mean Corpuscular Hemoglobin 29.7, Mean Corpuscular Hemoglobin Concent 33.1, Red Cell Distribution Width 12.8, Neutrophils (%) (Auto) 67.7 H, Lymphocytes (%) (Auto) 19.8 L, Monocytes (%) (Auto) 9.5 H, Eosinophils (%) (Auto) 2.1, Basophils (%) (Auto) 0.5, Neutrophils # (Auto) 5.8, Lymphocytes # (Auto) 1.7, Monocytes # (Auto) 0.8, Eosinophils # (Auto) 0.2, Basophils # (Auto) 0.0, Calcium Level 9.0 Microbiology Microbiology 02/16/19 Blood Culture - Preliminary, Resulted No Growth after 72 hours. All specime... Discharge Medications Scheduled Amlodipine Besylate (Amlodipine Besylate) 10 Mg Tablet, 10 MG PO DAILY, (Reported) Amoxicillin/Potassium Clav (Augmentin 875-125 Tablet) 1 Each Tablet, 1 TAB PO BID Aspirin (Aspir 81) 81 Mg Tablet.dr, 81 MG PO DAILY, (Reported) Hydrochlorothiazide (Hydrochlorothiazide) 25 Mg Tablet, 25 MG PO DAILY, (Reported) Metoprolol Tartrate (Metoprolol Tartrate) 25 Mg Tablet, 25 MG PO BID, (Reported) Multivitamin (Multivitamins) 1 Each Capsule, 1 CAP PO DAILY, (Reported) Oxcarbazepine (Trileptal) 150 Mg Tablet, 150 MG PO BID, (Reported) Oxcarbazepine (Trileptal) 300 Mg Tablet, 300 MG PO BID, (Reported) Scheduled PRN Oxycodone HCl/Acetaminophen (Percocet 5-325 mg Tablet) 1 Each Tablet, 1 TAB PO Q4H PRN for PAIN Allergies Coded Allergies: zomepirac (Verified Allergy, Unknown, 02/15/19) SIS COREA MD Feb 19, 2019 06:59
== END 2019-02-18 15:45 | disposition home or self-care (01) | DRG 578 ==
LOC: EDBD 17:29 → M ED 17:29 → M ED INP 21:05 → M MS5PR 02-16 01:27
PROVIDERS: ADMIT Internal Medicine; ATTEND Internal Medicine Nephrology
PROC: 0KB90ZZ Excision of Right Lower Arm and Wrist Muscle, Open Approach (ICD-10-PCS; 2019-02-16)
PROC: 0JXG0ZC Transfer Right Lower Arm Subcutaneous Tissue and Fascia with Skin, Subcutaneous Tissue and Fascia, Open Approach (ICD-10-PCS; principal; 2019-02-16 08:00)
DX: S50.01XA Contusion of right elbow, initial encounter (principal); S61.412A Laceration without foreign body of left hand, initial encounter; S01.81XA Laceration without foreign body of other part of head, initial encounter; I10 Essential (primary) hypertension; G40.909 Epilepsy, unspecified, not intractable, without status epilepticus; Z79.82 Long term (current) use of aspirin; Z79.899 Other long term (current) drug therapy; W54.0XXA Bitten by dog, initial encounter; Y92.009 Unspecified place in unspecified non-institutional (private) residence as the place of occurrence of the external cause; Z88.8 Allergy status to other drugs, medicaments and biological substances; D72.829 Elevated white blood cell count, unspecified; E87.6 Hypokalemia

== ENCOUNTER 2019-02-20 17:20 | Emergency (ER) | payer MEDICARE, OTHER ==
[~2019-02-20] VITALS: Ht 162.6 cm; Wt 95.5 kg
[~2019-02-20 17:20] MED LIST: AMLO10TA5 PO; ASPI81TA85 PO; AUGM875T28 PO; HYDR25TAB PO; METO25TA4 PO; MULTCAP PO; OXCA300T14 PO; PERC5TAB12 PO; TRIL150T PO; TRIL1TAB PO
[2019-02-20 19:51] VITALS: BP 144/78
== END 2019-02-20 19:52 | disposition home or self-care (01) ==
LOC: M ED 17:20
DX: Z48.02 Encounter for removal of sutures (principal); I10 Essential (primary) hypertension; R56.9 Unspecified convulsions; Z86.79 Personal history of other diseases of the circulatory system; Z79.82 Long term (current) use of aspirin; Z79.899 Other long term (current) drug therapy; Z88.8 Allergy status to other drugs, medicaments and biological substances